=== PATIENT | female | born 1980 | race Caucasian/White ===

== ENCOUNTER 2016-08-24 10:39 | Outpatient (CLI) | payer MEDICAID ==
[~2016-08-24] VITALS: Ht 157.5 cm; Wt 74.0 kg
[~2016-08-24 10:39] MED LIST: CEPH-443 PO
[2016-08-24 10:59] VITALS: BP 140/79; PULSE 72; RESP 18; Ht 157.5 cm; Wt 74.0 kg
[2016-08-24] MEDS ORDERED: AL HYDROX/MG HYDROX/SIMETH 30 ML CUP PO ONE (12:00)
--- NOTE | 2016-08-24 12:48 | RADRPT ---
PROCEDURE: US Abdomen Limited . CLINICAL INDICATION: with upper abdominal pain. TECHNIQUE: Multiple real-time images were acquired of the patient's right upper quadrant abdomen u tilizing a high resolution transducer. COMPARISON: None FINDINGS: The liver measures 12.0 cm and demonstrates a normal echogenicity. The gallbladder is filled with a moderate amount of bile. No shadowing echogenic stones or masses are seen in the gallbladder. The gallbladder wall is not thickened at 1 mm. No pericholecystic fluid is noted. The common bile duct m easures 5 mm in diameter. The pancreas is not well visualized. Right kidney measures 10.1 cm. Right kidney demonstrates a normal echogenicity. Mild right hydrone phrosis is observed. IMPRESSION: Mild right hydronephrosis. Etiology is uncertain. If further characterization is needed MRI can be considered. Pancreas not well visualized. If characterization of this structure is needed repeat exam or MRI is recommended. If further characterization of the abdomen is needed MRI is recommended. RPTAT: AA .Chinmay Huerta MD, Date Time Electronically viewed and signed by .Chinmay Huerta MD, MD on 08/24/2016 12:48 .P/
--- NOTE | 2016-08-24 13:45 | RADRPT ---
PROCEDURE: US OB biophysical profile. CLINICAL INDICATION: decreased movements TECHNIQUE: Multiple sonographic images of the pelvis were obtained. The images were reviewed on a PACS workstation. COMPARISON: No prior studies are available for comparison. FINDINGS: There is a single viable intrauterine gestation. Cardiac activity is present with 136 beats per min missael. There is a vertex presentation. The placenta is posterior. There is no evidence of placental abruption. There is a normal amount of amniotic fluid with an DARYA = 11.4 cm. Biophysical profile: movement 2/2 tone 2/2. breathing 2/2 DARYA 2/2 Total 02/15 RPTAT: AA . IMPRESSION: Normal biophysical profile. . .Tao Dixon MD, MD Date Time Electronically viewed and signed by .Tao Dixon MD, MD on 08/24/2016 13:44 .S/
[2016-08-24 14:10] LABS: ALBUMIN 4.1 g/dl (3.3-4.9); POTASSIUM 4.4 mmol/L (3.5-5.1)
[2016-08-24 14:12] LABS: BILIRUBIN,INDIRECT 0.1 mg/dl (0-1.1); BILIRUBIN,TOTAL 0.1 mg/dl (0.2-1.3); CREATININE 0.65 mg/dl (0.44-1.00)
[2016-08-24 14:13] LABS: ALBUMIN/GLOBULIN RATIO 0.95; CALCIUM 9.8 mg/dl (8.4-10.2); TOTAL PROTEIN 8.4 g/dl (6.1-8.1); URIC ACID 6.5 mg/dl (3.1-7.9)
[2016-08-24 14:24] LABS: ADD UMIC YES; URINE BILIRUBIN (Dip) NEGATIVE (NEGATIVE); URINE BLOOD (Dip) NEGATIVE (NEGATIVE); URINE COLOR YELLOW (YELLOW); URINE GLUCOSE (Dip) NEGATIVE (NEGATIVE); URINE KETONES (Dip) NEGATIVE (NEGATIVE); URINE LEUKOCYTE ESTERASE (Dip) TRACE (NEGATIVE); URINE NITRITE (Dip) NEGATIVE (NEGATIVE); URINE TOTAL PROTEIN (Dip) TRACE (NEGATIVE); URINE UROBILINOGEN (Dip) 0.2 E.U./dL (0.1-1.0)
[2016-08-24 14:26] LABS: BASOPHIL # 0.1 10^3/ul (0.0-0.1); BASOPHILS % 0.4 % (0.0-2.0); CONDITION 1; EOSINOPHILS # 0.1 10^3/ul (0.0-0.5); EOSINOPHILS % 1.1 % (0.0-7.0); HEMATOCRIT 42.9 % (37.0-47.0); HEMOGLOBIN 14.4 g/dl (12.0-16.0); LH ANALYZER COMMENTS 1; LYMPHOCYTES # 4.7 10^3/ul (0.8-2.9); LYMPHOCYTES % 38.7 % (15.0-51.0); MEAN CORPUSCULAR HEMOGLOBIN 30.4 pg (29.0-33.0); MEAN CORPUSCULAR HGB CONC 33.6 g/dl (32.0-37.0); MEAN CORPUSCULAR VOLUME 90.5 fl (82.0-101.0); MEAN PLATELET VOLUME 13.1 fl (7.4-10.4); MONOCYTE # 0.8 10^3/ul (0.3-0.9); NEUTROPHIL # 6.4 10^3/ul (1.6-7.5); NEUTROPHILS % 52.8 % (39.0-77.0); PLATELET COUNT 157 10^3/UL (140-440); RED BLOOD COUNT 4.74 10^6/ul (4.20-5.40); RED CELL DISTRIBUTION WIDTH 14.6 % (11.5-14.5); SUSPECT 1; UNCORRECTED WBC 12.2 10^3/ul (4.8-10.8); WHITE BLOOD COUNT 12.2 10^3/ul (4.8-10.8)
[2016-08-24 14:35] LABS: BACTERIA,URINE MODERATE; URINE RBCS NONE SEEN /HPF (0)
--- NOTE | 2016-08-24 16:29 | CONS ---
Date/Time of Note Date/Time of Note DATE: 08/24/16 TIME: 16:20 Consultation Date/Type/Reason Admit Date/Time August 24, 2016 Triage consultation This patient is a 36 years old 5 para 3 1 2 date of October 30, 2016. Now 30 weeks and 3 days. She came to triage area complaining of abdominal and back pain which is happening every few days lasting about half an hour. No nausea or vomiting. On examination she is a well-developed well-nourished lady her vital signs are stable blood pressure 140/79 pulse rate 94 temperature 90 7. repeated blood pressure was 119/76 and 134/81 her ear nose throat appear to be normal neck is normal. No neck vein distention. No thyromegaly. No lymph node enlargement anywhere in the body. Chest is clear to auscultation her precaution. Heart normal sinus rhythm no murmur breasts are soft free of masses. Nipples are normal. Abdomen is soft no contraction at this time. heart tone is normal with fairly good accelerations variability and no deceleration. Her knee-jerk reflexes about 2+ on the left as her urine was 1+ protein and her BUN was 6.5 the rest of the exam were normal as I mentioned a CBC CMP and urine test was for her abdominal pain Mylanta was ordered. And to rule out PIH a 24 hour urine collection was initiated. Patient was instructed on how to properly collect a urine specimen this is to rule out PIH end of dictation thank you Laboratory Tests Test 08/24/16 10:25 08/24/16 13:30 Urine Bacteria MODERATE Urine Bilirubin NEGATIVE Urine Clarity CLEAR Urine Color YELLOW Urine Epithelial Cells MODERATE Urine Glucose NEGATIVE% Urine Hemoglobin NEGATIVE Urine Ketones NEGATIVE Urine Leukocyte Esterase TRACE Urine Microscopic RBC NONE SEEN/HPF Urine Microscopic WBC 5-10/HPF Urine Nitrite NEGATIVE Urine Specific [place] >=1.030 Urine Total Protein TRACE Urine Urobilinogen 0.2 E.U./dL Urine pH 6.0 Alanine Aminotransferase (ALT/SGPT) 27IU/L Albumin 4.1g/dl Albumin/Globulin Ratio 0.95 Alkaline Phosphatase 223IU/L Anion Gap 18 Aspartate Amino Transf (AST/SGOT) 30IU/L Basophils # 0.110^3/ul Basophils % 0.4% Blood Morphology Comment Blood Urea Nitrogen 12mg/dl Calcium Level 9.8mg/dl Carbon Dioxide Level 20mmol/L Chloride Level 105mmol/L Creatinine 0.65mg/dl Direct Bilirubin 0.00mg/dl Eosinophils # 0.110^3/ul Eosinophils % 1.1% Globulin 4.30g/dl Glucose Level 75mg/dl Hematocrit 42.9% Hemoglobin 14.4g/dl Indirect Bilirubin 0.1mg/dl Lymphocytes # 4.710^3/ul Lymphocytes % 38.7% Mean Corpuscular Hemoglobin 30.4pg Mean Corpuscular Hemoglobin Concent 33.6g/dl Mean Corpuscular Volume 90.5fl Mean Platelet Volume 13.1fl Monocytes # 0.810^3/ul Monocytes % 7.0% Neutrophils # 6.410^3/ul Neutrophils % 52.8% Nucleated Red Blood Cells # 0.010^3/ul Nucleated Red Blood Cells % 0.0/100WBC Platelet Count 31219^3/UL Potassium Level 4.4mmol/L Red Blood Count 4.7410^6/ul Red Cell Distribution Width 14.6% Sodium Level 139mmol/L Total Bilirubin 0.1mg/dl Total Protein 8.4g/dl Uric Acid 6.5mg/dl White Blood Count 12.210^3/ul Current Medications Medications (Trade) Dose Ordered Sig/Manuela Route PRN Reason Start Time Stop Time Status Last Admin Dose Admin Al Hydrox/Mg Hydrox/Simethicone (Mag-Al Plus) 30 ml ONCE ONCE PO 08/24/16 12:00 08/24/16 12:01 DC 08/24/16 12:05 30 ML Initial Consult Date Exam/Review of Systems Vital Signs Vitals Vital Signs Date Time Temp Pulse Resp B/P Pulse Ox O2 Delivery O2 Flow Rate FiO2 08/24/16 10:59 97.8 72 18 140/79 Room Air Results Result Diagram: 08/24/16 1330 08/24/16 1330 Results 24 hrs Laboratory Tests Test 08/24/16 10:25 08/24/16 13:30 Urine Bacteria MODERATE Urine Bilirubin NEGATIVE Urine Clarity CLEAR Urine Color YELLOW Urine Epithelial Cells MODERATE Urine Glucose NEGATIVE Urine Hemoglobin NEGATIVE Urine Ketones NEGATIVE Urine Leukocyte Esterase TRACE H Urine Microscopic RBC NONE SEEN Urine Microscopic WBC 5-10 Urine Nitrite NEGATIVE Urine Specific [place] >=1.030 H Urine Total Protein TRACE Urine Urobilinogen 0.2 E.U./dL Urine pH 6.0 Alanine Aminotransferase (ALT/SGPT) 27 Albumin 4.1 Albumin/Globulin Ratio 0.95 Alkaline Phosphatase 223 H Anion Gap 18 H Aspartate Amino Transf (AST/SGOT) 30 Basophils # 0.1 Basophils % 0.4 Blood Morphology Comment Blood Urea Nitrogen 12 Calcium Level 9.8 Carbon Dioxide Level 20 L Chloride Level 105 Creatinine 0.65 Direct Bilirubin 0.00 Eosinophils # 0.1 Eosinophils % 1.1 Globulin 4.30 H Glucose Level 75 Hematocrit 42.9 Hemoglobin 14.4 Indirect Bilirubin 0.1 Lymphocytes # 4.7 H Lymphocytes % 38.7 Mean Corpuscular Hemoglobin 30.4 Mean Corpuscular Hemoglobin Concent 33.6 Mean Corpuscular Volume 90.5 Mean Platelet Volume 13.1 #H Monocytes # 0.8 Monocytes % 7.0 Neutrophils # 6.4 Neutrophils % 52.8 Nucleated Red Blood Cells # 0.0 Nucleated Red Blood Cells % 0.0 Platelet Count 157 # Potassium Level 4.4 Red Blood Count 4.74 Red Cell Distribution Width 14.6 H Sodium Level 139 Total Bilirubin 0.1 L Total Protein 8.4 H Uric Acid 6.5 White Blood Count 12.2 H JOSHUA ALMAZAN MD Aug 24, 2016 16:29
--- NOTE | 2016-08-24 17:39 | TRIAGE ---
OB Triage Datetime Report Generated by CPN: 08/24/2016 17:39 Datetime: 08/24/2016 15:51 Stage of : OB Triage Datetime: 08/24/2016 15:13 Stage of : OB Triage Datetime: 08/24/2016 15:07 Stage of : OB Triage Datetime: 08/24/2016 13:34 Stage of : OB Triage Datetime: 08/24/2016 13:24 Stage of : OB Triage Labor Evaluation Frequency: 0 Monitor Mode: External Resting Tone [place]: Relaxed Heart Rate FHR Baseline Rate: 130 Monitor Mode: External US Variability: Moderate 6-25 bpm Accelerations: 15X15 Decelerations: None Category: Category II Comments: frequent loos of contact rt pt frequent change of position Datetime: 08/24/2016 13:20 Stage of : OB Triage Datetime: 08/24/2016 12:39 Stage of : OB Triage Datetime: 08/24/2016 12:29 Stage of : OB Triage Datetime: 08/24/2016 12:12 Stage of : OB Triage Datetime: 08/24/2016 12:00 Stage of : OB Triage Labor Evaluation Frequency: x3 Monitor Mode: External Duration (sec)2399: 40 Quality: Mild Resting Tone [place]: Relaxed Heart Rate FHR Baseline Rate: 135 Monitor Mode: External US Variability: Moderate 6-25 bpm Accelerations: 15X15 Decelerations: Variable Category: Category I Comments: Appropriate for ga Datetime: 08/24/2016 11:48 Stage of : OB Triage Datetime: 08/24/2016 11:43 Stage of : OB Triage Datetime: 08/24/2016 11:28 EGA: 30.3 Datetime: 08/24/2016 11:04 Assessment Type: Admission Assessment Maternal Assessment Level of Consciousness: Fully Conscious DTR's/Clonus: DTRs 2+; No Clonus Headache: Denies Blurred Vision: No Respiratory Effort: Unlabored; Regular Rhythm; Equal Expansion Breath Sounds, Left: Clear and Equal Breath Sounds, Right: Clear and Equal Nausea/Vomiting: Denies RUQ Epigastric Pain: Denies Lower Extremities Edema: None Degree: None Upper Extremities Edema: None Degree: None Facial Edema: None Fall Risk Assessment History of Falling: (0) No Secondary Diagnosis: (0) No Ambulatory Aid: (0) Bedrest/Nurse Assist IV Therapy: (0) No Gait: (0) Normal/Bedrest/Immobile Mental Status: (0) Oriented to Own Ability Fall Score: 0 Fall Risk Score Definition: No Risk: No action required Datetime: 08/24/2016 11:03 Time of Arrival: 08/24/2016 10:38 EGA: 30.3 Arrived By: Wheelchair Arrived From: Emergency Dept Chief Complaint: ABDOMINAL PAIN Movement: Present Contractions: Denies/Absent Rupture of Membranes: Denies Vaginal Bleeding: None Vaginal Discharge: Denies Recent Sexual Intercouse: Denies Abdominal Trauma: Not Applicable Patient Complaints: Nausea; Vomiting; Other Additional Patient Complaints: PT CAME IN COMPLAINING OF ABDOMINAL PAIN AND N/V FOR 2 WEEKS. Time Provider Notified: 08/24/2016 11:37 Provider Notified: Renetta Initial Plan: VS, NST, BP studies, US GALL BLADDER, CBC, CMP, URIC ACID, UA, BPP Datetime: 08/24/2016 10:47 Stage of : OB Triage Monitor Mode: External Monitor Mode: External US
--- NOTE | 2016-08-24 18:00 | TRIAGE ---
OB Triage Datetime Report Generated by CPN: 08/24/2016 18:00 Datetime: 08/24/2016 16:10 Stage of : OB Triage Frequency: 0 Monitor Mode: External Resting Tone [place]: Relaxed Datetime: 08/24/2016 15:00 Stage of : OB Triage FHR Baseline Rate: 130 Monitor Mode: External US FHR Baseline Changes: No Baseline Change Variability: Moderate 6-25 bpm Accelerations: 15X15 Decelerations: Variable Category: Category I Comments: Appropriate for ga.
[2016-08-25] MEDS ORDERED: PRENAT PO (18:47)
== END 2016-08-24 16:27 | disposition home or self-care (01) ==
LOC: OBT 10:39 → L-D 10:40 → OBT 16:27
PROVIDERS: ATTEND Obstetrics & Gynecology
DX: O26.893 Other specified pregnancy related conditions, third trimester (principal); R10.10 Upper abdominal pain, unspecified; M54.9 Dorsalgia, unspecified; O36.8130 Decreased fetal movements, third trimester, not applicable or unspecified; Z3A.30 30 weeks gestation of pregnancy
CPT/HCPCS: 36415; 76705; 76818; 80053; 81001; 81003; 84560; 85025; Z7500; Z7610; G0463

== ENCOUNTER 2016-08-25 18:28 | Inpatient (IN) | payer MEDICAID ==
[~2016-08-25] VITALS: Ht 157.5 cm; Wt 74.5 kg
[2016-08-25] MEDS ORDERED: PRENAT PO (18:47)
[2016-08-25 18:48] VITALS: BP 127/77; PULSE 64; RESP 18; Ht 157.5 cm; Wt 74.5 kg
[2016-08-25] MEDS ORDERED: ACETAMINOPHEN 325 MG TAB PO ONE (19:30)
--- NOTE | 2016-08-25 20:23 | RADRPT ---
PROCEDURE: OB ultrasound for biophysical profile CLINICAL INDICATION: Biophysical profile. . TECHNIQUE: Transabdominal and transvaginal examination of the gravid uterus. COMPARISON: OB ultrasound 08/24/2016 FINDINGS: Single intrauterine gestation. Presentation: cephalic. Placenta: Fundal - posterior breathing movement = 2/2 tone = 2/2 motion = 2/2 DARYA = 2/2 DARYA = 12.2 cm heart rate: 148 beats per minute Cervix is closed with a length of 3.66 cm as imaged transvaginally. IMPRESSION: Single intrauterine gestation. Biophysical profile 02/15 Cervix is closed with a length of 3.66 cm as imaged transvaginally. RPTAT: AADD .Kong Henry MD, Date Time Electronically viewed and signed by .Kong Henry MD, on 08/25/2016 20:23 .B/
[2016-08-25 21:20] LABS: SCRET 0.65 mg/dl (0.44-1.00)
--- NOTE | 2016-08-25 21:28 | QN ---
Documentation Comment 36-year-old with IUP at 30 weeks and 4 days presented for dropping 24 hour urine protein ordered due to elevated blood pressure noted yesterday when she presented with abdominal pain. Patient abdominal pain currently resolved. She also was complaining of headache. She denied any leaking of fluid, vaginal bleeding or decreased movement. She was noted to have regular contractions every 3-4 minutes during the observation. She had a serial blood pressure check when she presented to triage to drop her 24 hour urine protein which noted to increasing from 120s- 160s over 90s. She also complained of headache. She denied any epigastric pain or right upper quadrant pain. Ultrasound showed cervical length more than 3 cm. BPP was 8/8 and reassuring PIH labs ordered during observation, that was unremarkable. Due to elevated blood pressure in the range of preeclampsia as well as headache, as well as regular contractions patient will be admitted to antepartum service. PE: GA , A&O, in moderate distress Abdomen: Soft, nontender, no rebound tenderness, no guarding no rigidity fundal height consistent with gestational age Assessment IUP at 30 weeks and 4 days Headache and increase in blood pressure at the level of severe preeclampsia. Headache did not resolve with Tylenol and rest 24 hour urine protein was sent and is pending will admit the patient to antepartum service Start magnesium, due to elevated blood pressure in the severe range for seizure prophylaxis We will continue to watch closely PIH panel every 12 hours Perinatology and neonatology consult tomorrow. UA sent due to regular contractions. FFN negative GIANNA MCKAY MD Aug 25, 2016 21:28
[2016-08-25] MEDS ORDERED: MAGNESIUM SULFATE 4 GM/100 ML 100 ML IV ONE (21:30)
[2016-08-25] MEDS: BETAMET NA PHOS/AC(6 MG/ML) 5ML INJ IM SCH (21:30)
[2016-08-25] MEDS: LACTATED RINGER'S 1,000 ML IV SCH (21:42)
[2016-08-25 22:26] LABS: ADD UMIC NO; URINE BILIRUBIN (Dip) NEGATIVE (NEGATIVE); URINE BLOOD (Dip) NEGATIVE (NEGATIVE); URINE COLOR LT. YELLOW (YELLOW); URINE GLUCOSE (Dip) NEGATIVE (NEGATIVE); URINE KETONES (Dip) NEGATIVE (NEGATIVE); URINE LEUKOCYTE ESTERASE (Dip) NEGATIVE (NEGATIVE); URINE NITRITE (Dip) NEGATIVE (NEGATIVE); URINE TOTAL PROTEIN (Dip) NEGATIVE (NEGATIVE); URINE UROBILINOGEN (Dip) 0.2 E.U./dL (0.1-1.0)
[2016-08-25] MEDS: MAGNESIUM SULFATE 20 GM/500 ML 500 ML IV SCH (22:36)
[2016-08-25 22:42] LABS: ALBUMIN 3.2 g/dl (3.3-4.9)
[2016-08-25 22:43] LABS: POTASSIUM 3.8 mmol/L (3.5-5.1)
[2016-08-25 22:45] LABS: CREATININE 0.61 mg/dl (0.44-1.00)
[2016-08-25 22:46] LABS: ALBUMIN/GLOBULIN RATIO 0.96; CALCIUM 8.7 mg/dl (8.4-10.2); TOTAL PROTEIN 6.5 g/dl (6.1-8.1); URIC ACID 6.3 mg/dl (3.1-7.9)
[2016-08-25 22:46] LABS: INR 0.89; PT RATIO 0.9
[2016-08-25 22:47] LABS: PARTIAL THROMBOPLASTIN TIME 30.3 Sec (25.0-35.0)
[2016-08-25 23:05] LABS: BASOPHILS % 0.5 % (0.0-2.0); EOSINOPHILS # 0.1 10^3/ul (0.0-0.5); EOSINOPHILS % 1.3 % (0.0-7.0); HEMATOCRIT 34.9 % (37.0-47.0); HEMOGLOBIN 11.6 g/dl (12.0-16.0); LYMPHOCYTES # 3.8 10^3/ul (0.8-2.9); LYMPHOCYTES % 35.8 % (15.0-51.0); MEAN CORPUSCULAR HEMOGLOBIN 30.3 pg (29.0-33.0); MEAN CORPUSCULAR HGB CONC 33.3 g/dl (32.0-37.0); MEAN PLATELET VOLUME 13.3 fl (7.4-10.4); MONOCYTE # 0.6 10^3/ul (0.3-0.9); MONOCYTES % 6.1 % (0.0-11.0); NEUTROPHIL # 5.9 10^3/ul (1.6-7.5); NEUTROPHILS % 56.3 % (39.0-77.0); PLATELET COUNT 149 10^3/UL (140-440); RED BLOOD COUNT 3.84 10^6/ul (4.20-5.40); RED CELL DISTRIBUTION WIDTH 14.5 % (11.5-14.5); UNCORRECTED WBC 10.6 10^3/ul (4.8-10.8); WHITE BLOOD COUNT 10.6 10^3/ul (4.8-10.8)
[2016-08-25 23:06] LABS: CONDITION 1
[2016-08-26] MEDS: MEPERIDINE 25 MG INJ IM PRN ×2 (01:17→05:20)
[2016-08-26] MEDS: hydrOXYzine HCL 100 MG INJ IM PRN ×2 (01:17→05:21)
--- NOTE | 2016-08-26 01:27 | TRIAGE ---
OB Triage Datetime Report Generated by CPN: 08/26/2016 01:27 Datetime: 08/26/2016 00:07 Assessment Type: Admission Assessment Vaginal Bleeding: None Level of Consciousness: Fully Conscious DTR's/Clonus: DTRs 2+; No Clonus Headache: Denies Blurred Vision: No Respiratory Effort: Unlabored; Regular Rhythm; Equal Expansion Breath Sounds, Left: Clear and Equal Breath Sounds, Right: Clear and Equal Nausea/Vomiting: Denies RUQ Epigastric Pain: Denies Lower Extremities Edema: None Degree: None Upper Extremities Edema: None Degree: None Facial Edema: None History of Falling: (0) No Secondary Diagnosis: (0) No Ambulatory Aid: (0) Bedrest/Nurse Assist IV Therapy: (0) No Gait: (0) Normal/Bedrest/Immobile Mental Status: (0) Oriented to Own Ability Fall Score: 0 Fall Risk Score Definition: No Risk: No action required Pain Scale: 0 Pain Presence: None/Denies Pain Type: N/A Datetime: 08/25/2016 23:27 Frequency: x2 Monitor Mode: External Duration (sec)2399: 40-60 Quality: Mild Pattern: Normal: <= 5 Contractions in 10 Minutes Resting Tone [place]: Relaxed FHR Baseline Rate: 130 Monitor Mode: External US FHR Baseline Changes: No Baseline Change Variability: Moderate 6-25 bpm Accelerations: 15X15 Decelerations: Variable Category: Category II Datetime: 08/25/2016 23:00 Frequency: 2-13 Monitor Mode: External Duration (sec)2399: 40-70 Quality: Mild Pattern: Normal: <= 5 Contractions in 10 Minutes Resting Tone [place]: Relaxed FHR Baseline Rate: 130 Monitor Mode: External US FHR Baseline Changes: No Baseline Change Variability: Moderate 6-25 bpm Accelerations: 15X15 Decelerations: None Category: Category I Datetime: 08/25/2016 22:00 Frequency: 1-3.5 Monitor Mode: External Duration (sec)2399: 40-90 Quality: Mild Pattern: Normal: <= 5 Contractions in 10 Minutes Resting Tone [place]: Relaxed FHR Baseline Rate: 130 Monitor Mode: External US Variability: Moderate 6-25 bpm Accelerations: 15X15 Decelerations: None Category: Category I Pain Scale: 5 Pain Presence: Constant Pain Type: Ache Pain Location: Head Datetime: 08/25/2016 21:17 Membrane Status: Intact Datetime: 08/25/2016 21:00 Stage of : OB Triage Frequency: 2-5.5 Monitor Mode: External Duration (sec)2399: 40-80 Quality: Mild Pattern: Normal: <= 5 Contractions in 10 Minutes Resting Tone [place]: Relaxed FHR Baseline Rate: 135 Monitor Mode: External US FHR Baseline Changes: No Baseline Change Variability: Moderate 6-25 bpm Accelerations: 15X15 Decelerations: Variable Category: Category II Datetime: 08/25/2016 20:45 Stage of : OB Triage Pain Scale: 5 Pain Presence: Constant Pain Type: Ache Pain Location: Head Pain Relief Measures: Pain Medication Given Pain Assessment Comments: Pt states DURAN pain remains unchanged after Tylenol given. Datetime: 08/25/2016 20:00 Stage of : OB Triage Frequency: 2-10 Monitor Mode: External Duration (sec)2399: 40-100 Quality: Mild Pattern: Normal: <= 5 Contractions in 10 Minutes Resting Tone [place]: Relaxed FHR Baseline Rate: 135 Monitor Mode: External US Variability: Moderate 6-25 bpm Accelerations: 15X15 Decelerations: None Category: Category I Datetime: 08/25/2016 19:27 Resting Tone [place]: Relaxed Contraction Comments: Abdomen soft by palpation Datetime: 08/25/2016 19:26 Stage of : OB Triage Assessment Type: Triage Level of Consciousness: Fully Conscious DTR's/Clonus: DTRs 2+; No Clonus Headache: Frontal Blurred Vision: No Respiratory Effort: Unlabored; Regular Rhythm; Equal Expansion Breath Sounds, Left: Clear and Equal Breath Sounds, Right: Clear and Equal Nausea/Vomiting: Denies RUQ Epigastric Pain: Denies Lower Extremities Edema: None Degree: None Upper Extremities Edema: None Degree: None Facial Edema: None Temperature Route: Oral History of Falling: (0) No Secondary Diagnosis: (0) No Ambulatory Aid: (0) Bedrest/Nurse Assist IV Therapy: (0) No Gait: (0) Normal/Bedrest/Immobile Mental Status: (0) Oriented to Own Ability Fall Score: 0 Fall Risk Score Definition: No Risk: No action required Pain Scale: 5 Pain Presence: Constant Pain Type: Ache Pain Location: Head Pain Relief Measures: Comfort Measures Pain Assessment Comments: Will medicate with Tylenol Datetime: 08/25/2016 18:45 Assessment Type: Triage Level of Consciousness: Fully Conscious DTR's/Clonus: DTRs 2+; No Clonus Headache: Frontal Blurred Vision: No Respiratory Effort: Unlabored; Regular Rhythm; Equal Expansion Breath Sounds, Left: Clear and Equal Breath Sounds, Right: Clear and Equal Nausea/Vomiting: Denies RUQ Epigastric Pain: Denies Lower Extremities Edema: None Degree: None Upper Extremities Edema: None Degree: None Facial Edema: None History of Falling: (0) No Secondary Diagnosis: (0) No Ambulatory Aid: (0) Bedrest/Nurse Assist IV Therapy: (0) No Gait: (0) Normal/Bedrest/Immobile Mental Status: (0) Oriented to Own Ability Fall Score: 0 Fall Risk Score Definition: No Risk: No action required Datetime: 08/24/2016 15:44 Time of Arrival: 08/25/2016 18:26 EGA: 30.4 Arrived By: Ambulatory Arrived From: Home Chief Complaint: PT HERE WITH 24HOUR URINE COLLECTION Movement: Present Contractions: Denies/Absent Rupture of Membranes: Denies Vaginal Bleeding: None Vaginal Discharge: Denies Recent Sexual Intercouse: Denies Abdominal Trauma: Not Applicable Patient Complaints: Headache Time Provider Notified: 08/25/2016 19:03 Provider Notified: ARDALAN Initial Plan: 24hr urine collection drop-off Datetime: 08/24/2016 11:28 EGA: 30.3 Datetime: 08/24/2016 11:04 Fall Score: 0 Fall Risk Score Definition: No Risk: No action required
[2016-08-26] MEDS: MAGNESIUM SULFATE 20 GM/500 ML 500 ML IV SCH ×2 (07:11→07:59)
[2016-08-26] MEDS: LACTATED RINGER'S 1,000 ML IV SCH ×2 (08:00→21:21)
[2016-08-26] MEDS: MULTIVIT/MIN/FOLATE/IRON/PREN TAB PO SCH (09:18)
[2016-08-26] MEDS: EXCEDRIN MIGRAINE PO PRN ×2 (12:55→18:07)
--- NOTE | 2016-08-26 14:04 | PN ---
Date/Time of Note Date/Time of Note DATE: 08/26/16 TIME: 13:46 OB Subjective Subjective Subjective August 26, 2016 Hospital consult This patient is a 36 years old 5 para 3 1 with EDC of October.. She is now 30 weeks and 4 days . She was admitted in the hospital last night She came in triage area to arrange her 24-hour urine collection, however it was found that she has a headache and her blood pressure was elevated in the 135 /90 range. For this reason the decision was made to be admitted in the hospital for further care. Her biophysical profile was 8 of 8 ,cervical length of 3.6 .. She was subsequently admitted to [facility] . Mag sulfate started.. She was given pain medication. Magnesium sulfate is stopped due to headache and some degree of abnormal heart rate tracing. Her blood pressures gradually improved, now is in the range of 110-120/70-75 over 80. She still has a mild headache. No ankle edema. Knee-jerk reflex are normal. Abdomen is soft. heart tone at this time is normal with fairly low variability. She does not have any contractions. Her max sulfate as I mentioned was DC'd few hours ago due to slightly abnormal heart tracing. Apparently takes about 3 days for the 24-hour urine result to be reported. For now we will keep her in the house in the hospital under observation. Patient has been visited by perinatologist. . Laboratory Tests Test 08/25/16 17:30 08/25/16 19:24 08/25/16 21:00 08/25/16 21:40 Creatinine Clearance 111.0mls/min Urine Creatinine Timed 24hrs Urine Random Creatinine 69.27mg/dl Urine Total Volume 24 Hours 1500ml/24hrs Fibronectin NEGATIVE Activated Partial Thromboplast Time 30.3Sec Basophils # 0.010^3/ul Basophils % 0.5% Blood Morphology Comment Eosinophils # 0.110^3/ul Eosinophils % 1.3% Fibrinogen 470.0mg/dl Hematocrit 34.9% Hemoglobin 11.6g/dl INR International Normalized Ratio 0.89 Lymphocytes # 3.810^3/ul Lymphocytes % 35.8% Mean Corpuscular Hemoglobin 30.3pg Mean Corpuscular Hemoglobin Concent 33.3g/dl Mean Corpuscular Volume 91.0fl Mean Platelet Volume 13.3fl Monocytes # 0.610^3/ul Monocytes % 6.1% Neutrophils # 5.910^3/ul Neutrophils % 56.3% Nucleated Red Blood Cells # 0.010^3/ul Nucleated Red Blood Cells % 0.0/100WBC Platelet Count 01793^3/UL Prothrombin Time 12.0Sec Prothrombin Time Ratio 0.9 Red Blood Count 3.8410^6/ul Red Cell Distribution Width 14.5% White Blood Count 10.610^3/ul Alanine Aminotransferase (ALT/SGPT) 23IU/L Albumin 3.2g/dl Albumin/Globulin Ratio 0.96 Alkaline Phosphatase 178IU/L Anion Gap 16 Aspartate Amino Transf (AST/SGOT) 25IU/L Blood Urea Nitrogen 11mg/dl Calcium Level 8.7mg/dl Carbon Dioxide Level 19mmol/L Chloride Level 105mmol/L Creatinine 0.61mg/dl Direct Bilirubin 0.00mg/dl Globulin 3.30g/dl Glucose Level 84mg/dl Indirect Bilirubin 0.0mg/dl Potassium Level 3.8mmol/L Sodium Level 136mmol/L Total Bilirubin 0.0mg/dl Total Protein 6.5g/dl Uric Acid 6.3mg/dl Test 08/25/16 21:55 08/26/16 00:29 08/26/16 05:50 Urine Bilirubin NEGATIVE Urine Clarity CLEAR Urine Color LT. YELLOW Urine Glucose NEGATIVE% Urine Hemoglobin NEGATIVE Urine Ketones NEGATIVE Urine Leukocyte Esterase NEGATIVE Urine Nitrite NEGATIVE Urine Specific [place] 1.010 Urine Total Protein NEGATIVE Urine Urobilinogen 0.2 E.U./dL Urine pH 6.5 Magnesium Level 5.5mg/dl 6.5mg/dl Current Medications Medications (Trade) Dose Ordered Sig/Manuela Route PRN Reason Start Time Stop Time Status Last Admin Dose Admin Acetaminophen 650 mg 650 mg ONCE ONCE PO 08/25/16 19:30 08/25/16 19:31 DC 08/25/16 19:37 Lactated Ringer's 1,000 ml @ 75 mls/hr [id number] IV 08/25/16 21:11 08/26/16 08:00 Magnesium Sulfate 100 ml @ 200 mls/hr ONCE ONCE IV 08/25/16 21:30 08/26/16 10:45 DC 08/25/16 22:00 Magnesium Sulfate (Magnesium Sulfate 20 Gm/500 ml) 500 ml @ 50 mls/hr Q10H IV 08/25/16 21:11 08/26/16 10:45 DC 08/26/16 07:59 Betamethasone Acet/Betameth SodPhos (Celestone Soluspan) 12 mg Q24H IM 08/25/16 21:30 08/26/16 21:31 Prenat Multivit/ [place]/Iron/Folic Ac ( S) 1 tab DAILY PO 08/26/16 09:00 08/26/16 09:18 Meperidine HCl (Demerol) 25 mg Q4H PRN IM PAIN 08/25/16 23:30 08/26/16 05:20 Hydroxyzine HCl (Vistaril Inj) 25 mg Q4H PRN IM HEADACHE 08/25/16 23:30 08/26/16 05:21 Patient Own Medication 2 ea Q6H PRN PO PAIN LEVEL 6-10 08/26/16 10:30 08/26/16 12:55 If she is doing well she might be discharged home tomorrow or day after JOSHUA ALMAZAN MD Aug 26, 2016 14:04
[2016-08-26] MEDS: BETAMET NA PHOS/AC(6 MG/ML) 5ML INJ IM SCH (19:39)
--- NOTE | 2016-08-27 01:24 | CONS ---
DATE OF ADMISSION: 08/25/2016 DATE OF CONSULTATION: 08/26/2016 HISTORY OF PRESENT ILLNESS: The patient is a 36-year-old 5, para 3, with 1 miscarriage, cur rently at 30 weeks and 2 days who presented to the hospital with complaint of contractions and heada ches. Upon presentation, her blood pressures were found to be elevated. Cervical length was 3.5 cm , so she was placed on magnesium sulfate for tocolysis. Currently she does have a headache. It has not been relieved by Tylenol nor with stronger medication. She states that, however, her contracti ons have stopped. She states that she has a history of migraine, but this headache is different ole n the migraine, but she has experienced this type of headache before and the relief has been achieve d be Excedrin. She also had 1 episode of vomiting after she ate eggs in the morning. Her prior pregnancies are not complicated. PAST MEDICAL HISTORY: Except for migraine, negative. REVIEW OF SYSTEMS: All negative except for what is mentioned above. PHYSICAL EXAMINATION: Blood pressure currently is 118/63. Physical examination deferred. he art tone, minimal variability without decelerations. Contractions none. LABORATORY VALUES: AST, ALT are normal. Creatinine is 0.6, platelets 143, which is lower than the baseline of 178,000, I do believe, at the beginning of the test. A 24-hour urine for prot ein is pending. IMPRESSION: 1. Intrauterine at 30 weeks and 2 days with gestational hypertension, just diagnosed, pen ding 24-hour urine protein to diagnose preeclampsia. 2. Headache, which could be secondary to a complication of blood pressure elevation in or a type of her migraine that she has experienced in the past. 3. Nausea, vomiting. I do believe her vomiting is associated with her elevated blood pressure, as her liver function tests are completely normal at this point. 4. contractions. Currently, asymptomatic with normal cervical length. heart tone coronel s minimal variability, which is secondary to probably magnesium sulfate, as the baby had looked bett er prior to starting magnesium sulfate. RECOMMENDATIONS: Given currently completely normal blood pressures and the labs that are normal, al so given the fact that she has no contractions currently at cervical length is normal should be stop ped to monitor for improvement of heart tone status. Some crackers and toast prior to taking Excedrin, as she took in the past. She generally takes 2 ta blets and then if not improved in 4 hours, I advised her not to go beyond that, as if it has not imp roved, then it will be a concern for preeclampsia. Following up on the 24-hour urine for protein and creatinine clearance. She will be staying at least overnight in order to assure improvement of the heart rate status as well as resolution of her headache. Also, I do recommend for the patient to stay on for the 24- hour urine protein is resulted. Also, if nausea, vomiting continues, please repeat the liver functi on tests as well as a CBC and her creatinine level. If her headache is not resolved with the Excedrin, I do recommend betamethasone, as it will be a nelida nce that her headache is the result -induced hypertension and may require earlier delivery than normal. However, if the headache is resolved, blood pressure is completely normal and the feta l heart tone is reassuring, then we leave the betamethasone injection until later if necessary. I spoke to the nurse and the patient. Dictated By: SUDHAKAR GARCIA MD ST/NTS Conf#: [id number] DID#: [id number] CC: JADYN GONZALEZ MD;*EndCC*
[2016-08-27] MEDS: BETAMET NA PHOS/AC(6 MG/ML) 5ML INJ IM SCH (02:21)
[2016-08-27] MEDS: LACTATED RINGER'S 1,000 ML IV SCH ×2 (08:17→22:19)
--- NOTE | 2016-08-27 09:12 | PN ---
Date/Time of Note Date/Time of Note DATE: 08/27/16 TIME: 09:11 OB Subjective Subjective Subjective Laborist HD#3 for 36yo at 30+6 admitted for persistent DURAN in the setting of newly diagnosed gestational HTN with normal PreE labs as well as contractions with TVCL 3.6cm and neg FFN. This AM, pt is w/o c/o. States she had slight nausea this morning upon awakening but none since. Denies vomiting. Reports normal FM, denies LOF, VB or UCs. Pt currently denying DURAN. OB Objective Objective Objective BPs 122/75, 120s-140s/70s-80s Gen: sitting up in bed eating breakfast, NAD CV: RRR, nl s1s2 Resp: CTAB Abd: soft, NT, gravid Ext: nontender, no edema FHT: Baseline 120s, mod variability, +accels, variable with late shaped decel x1 at 0650 [place]: Acontractile OB Assessment/Plan Other Assessment: Gestational HTN Contractions Other plan: 1)Gestational Hypertension: Pt asymptomatic with majority of BPs wnl, few mild range BPs. S/p Mag Sulfate. Called the lab regarding the 24hr urine results and was told they should be back by tonight. Will continue to monitor BPs. At this time antihypertensives are not indicated. -S/p MFM Consult 2) Contractions: Pt no longer symptomatic and w/o e/o PTL. Pt not receiving tocolytics. 3)FWB: Category 1 FHT For last 2hrs. CEFM. However, given decel early this AM, pt received BMZ #1 at 0221. Will receive 2nd dose early tomorrow AM. 4)PPx: OOB to bathroom. SCDs while in bed. 5)Dispo: Possibly tomorrow pending results of 24hr urine, BPs today and status. Plan d/w pt and her partner. Questions answered to their satisfaction. ETHAN CURTIS MD Aug 27, 2016 09:12
[2016-08-27] MEDS: MULTIVIT/MIN/FOLATE/IRON/PREN TAB PO SCH (09:23)
[2016-08-27] MEDS ORDERED: ACETAMINOPHEN 500 MG TAB PO STA (21:29)
--- NOTE | 2016-08-27 21:58 | QN ---
Documentation Comment Laborist Alerted by RN of decels. In to see pt and pt also c/o chest pain at sternum. BPs reviewed and 130s-150s/70s-90s. Pt denies DURAN, visual changes or RUQ pain. FHT reviewed. Baseline 130s, mod yadira, +accels, non-repetitive variable decels to 90s and 60s. [place]: Acontractile Chest: localized pain at sternum, no local irritation/erythema/sores Although deep variable decels are concerning, they are intermittent and FHT between decels is reassuring. Will continue to monitor for now Proceed w/2nd dose of BMZ at 0200 Tylenol PO for chest pain, consider antacid as sxs may be related to GERD. Current clinical picture does not suggest cardiac event ETHAN CURTIS MD Aug 27, 2016 21:58
--- NOTE | 2016-08-28 00:14 | QN ---
Documentation Comment Laborist Transferred pt to L&D 2/2 deep variable decel x3 in 15 min. On L&D, FHT baseline 120s, mod yadira, decel to 80s x60 seconds. UC x1 noted on toco. BPs 189/94, 165/80, 132/61, 126/61 Pt asymptomatic, now sleeping OB U/S ordered to assess DARYA and placenta PreE labs repeated 24hr urine still pending ETHAN CURTIS MD Aug 28, 2016 00:14
--- NOTE | 2016-08-28 00:25 | RADRPT ---
PROCEDURE: Obstetrical ultrasound, limited. CLINICAL INDICATION: Pelvic pain. TECHNIQUE: Multiple sonographic images of the pelvis were obtained using transabdominal technique . Images were obtained with erickson scale and color Doppler. The images were reviewed on a PACS works tation. COMPARISON: 08/25/2016. FINDINGS: There is a single living intrauterine gestation with the fetus in a vertex presentation. hear t tones of 161 beats per minute are identified. The placenta is posterior in location, grade 1. IMPRESSION: Single viable intrauterine gestation. Vertex presentation. .Onel Lazo MD, MD Date Time Electronically viewed and signed by .Onel Lazo MD, on 08/28/2016 00:25 .T/
[2016-08-28 01:02] LABS: BASOPHIL # 0.1 10^3/ul (0.0-0.1); BASOPHILS % 0.4 % (0.0-2.0); EOSINOPHILS % 0.1 % (0.0-7.0); HEMATOCRIT 31.8 % (37.0-47.0); HEMOGLOBIN 10.7 g/dl (12.0-16.0); LYMPHOCYTES # 2.9 10^3/ul (0.8-2.9); LYMPHOCYTES % 19.5 % (15.0-51.0); MEAN CORPUSCULAR HEMOGLOBIN 30.6 pg (29.0-33.0); MEAN CORPUSCULAR HGB CONC 33.7 g/dl (32.0-37.0); MEAN CORPUSCULAR VOLUME 90.8 fl (82.0-101.0); MONOCYTE # 0.9 10^3/ul (0.3-0.9); MONOCYTES % 6.1 % (0.0-11.0); NEUTROPHIL # 11.2 10^3/ul (1.6-7.5); NEUTROPHILS % 73.9 % (39.0-77.0); PLATELET COUNT 144 10^3/UL (140-440); RED CELL DISTRIBUTION WIDTH 14.4 % (11.5-14.5); UNCORRECTED WBC 15.1 10^3/ul (4.8-10.8); WHITE BLOOD COUNT 15.1 10^3/ul (4.8-10.8)
[2016-08-28 01:05] LABS: CONDITION 1; LH ANALYZER COMMENTS 1; SUSPECT 1
[2016-08-28 01:22] LABS: ALBUMIN 2.9 g/dl (3.3-4.9)
[2016-08-28 01:23] LABS: POTASSIUM 4.3 mmol/L (3.5-5.1)
[2016-08-28 01:25] LABS: ALBUMIN/GLOBULIN RATIO 0.9; CREATININE 0.64 mg/dl (0.44-1.00); TOTAL PROTEIN 6.1 g/dl (6.1-8.1)
[2016-08-28 01:26] LABS: CALCIUM 8.4 mg/dl (8.4-10.2); URIC ACID 5.7 mg/dl (3.1-7.9)
[2016-08-28 01:28] LABS: INR 0.96; PARTIAL THROMBOPLASTIN TIME 27.9 Sec (25.0-35.0); PROTIME 12.8 Sec (12.2-14.2)
[2016-08-28] MEDS: BETAMET NA PHOS/AC(6 MG/ML) 5ML INJ IM SCH (02:22)
[2016-08-28] MEDS ORDERED: LACTATED RINGER'S 1,000 ML IV SCH (03:11)
[2016-08-28] MEDS ORDERED: CITRIC ACID/NA CITRATE 30 ML CUP PO ONE (03:30)
[2016-08-28 04:14] LABS: ADD UMIC YES; URINE BILIRUBIN (Dip) NEGATIVE (NEGATIVE); URINE BLOOD (Dip) NEGATIVE (NEGATIVE); URINE COLOR LT. YELLOW (YELLOW); URINE GLUCOSE (Dip) NEGATIVE (NEGATIVE); URINE KETONES (Dip) NEGATIVE (NEGATIVE); URINE LEUKOCYTE ESTERASE (Dip) NEGATIVE (NEGATIVE); URINE NITRITE (Dip) NEGATIVE (NEGATIVE); URINE TOTAL PROTEIN (Dip) TRACE (NEGATIVE); URINE UROBILINOGEN (Dip) 0.2 E.U./dL (0.1-1.0)
[2016-08-28 04:24] LABS: BACTERIA,URINE RARE; SQUAMOUS EPITHELIAL CELL,UR FEW; URINE RBCS NONE SEEN /HPF (0)
--- NOTE | 2016-08-28 05:31 | QN ---
Documentation Comment Laborist PreE labs wnl. Placenta on U/S wnl 24hr urine returned at 195mg protein BPs mostly 150s/80s, pt asymptomatic Sternal pain improved with Bicitra and ice pack. Pain resolves with standing. Feels UCs, non-painful FHT reassuring, moderate variability with accels, variable decels have spaced considerably, no recent decels. [place] w/irregular UCs A/P: 1) Gestational HTN: Continue to monitor BPs. Labs nor 24hr urine suggestive of PreE. BPs reviewed across the last 24hrs and during the day shift SBP all <140s with uptrending SBPs over the course of the night. If BPs continue to trend upwards, would consider antihypertensive. Tonight pt has not had sustained severe range BPs. 2)FWB: Overall reassuring. CEFM. S/p 2nd dose of BMZ for FLM in the setting of decels 3) contractions: Pt with CL>3cm on admission, s/p Magnesium Sulfate 2/2 concern for PTL. Off tocolytics now. IVF increased from 75ml to 125ml/hr. Continue to monitor. In the event the contractions become more frequent or painful, would consider restarting Magnesium at least through the BMZ window unless there is another indication to deliver without delay. ETHAN CURTIS MD Aug 28, 2016 05:31
[2016-08-28] MEDS: LACTATED RINGER'S 1,000 ML IV SCH ×3 (06:29→22:23)
[2016-08-28] MEDS: MULTIVIT/MIN/FOLATE/IRON/PREN TAB PO SCH (09:19)
--- NOTE | 2016-08-28 16:19 | QN ---
Documentation Comment t Laborist Dr Sanchez's pt 36 y.o. A1 at 31 weeks with gestational HTN and occasional deep variable heart rate decelerations. PIH labs wnl. Placenta on U/S wnl 24hr urine returned at 195mg protein (mild elevation). BPs today 138-171/72-86, pt asymptomatic. No headache today. FHT reassuring, moderate variability with accels, deep variable decels to 60's on occasion. No UCs. A/P: 1) Gestational HTN: Continue to monitor BPs. Labs normal, 24hr urine with slight elevation of protein at 195. Systolic BP's occasionally rise but then normalize. 2) Overall reassuring tracing except for the decels. S/p 2nd dose of steroids due to the decels 3) contractions: Pt with CL>3cm on admission, s/p Magnesium Sulfate 2/2 concern for PTL. Off tocolytics now. IVF increased from 75ml to 125ml/hr. Continue to monitor. OBED SHAH MD Aug 28, 2016 16:19
[2016-08-28] MEDS ORDERED: LABETALOL HCL 20MG INJ IV ONE (20:30)
[2016-08-28] MEDS ORDERED: LABETALOL HCL 20MG INJ IV PRN (21:45)
--- NOTE | 2016-08-28 21:57 | QN ---
Documentation Comment Laborist In to see pt. Pt with sustained severe range BPs- BPs taken in semi fowlers position, pt calm. Denies DURAN, visual changes or RUQ pain. Received Labetolol 10mg IV x1 with mild range BP thereafter. FHT reviewed and reassuring. No prominent decels noted. Acontractile on toco Continue to monitor for BPs and for FWB. Pt remains asymptomatic If BPs return and persist in severe range, will consider repeating PreE labs, treat with IV antihypertensive and follow with PO meds if needed. Plan d/w pt. Questions answered to her satisfaction. ETHAN CURTIS MD Aug 28, 2016 21:57
[2016-08-29] MEDS ORDERED: LABETALOL HCL 20MG INJ IV ONE (01:30)
[2016-08-29] MEDS ORDERED: LABETALOL HCL 20MG INJ IV PRN ×3 (01:45→20:30)
[2016-08-29 02:34] LABS: ALBUMIN 2.9 g/dl (3.3-4.9)
[2016-08-29 02:35] LABS: POTASSIUM 4.4 mmol/L (3.5-5.1)
[2016-08-29 02:36] LABS: INR 0.86; PARTIAL THROMBOPLASTIN TIME 24.8 Sec (25.0-35.0); PROTIME 11.7 Sec (12.2-14.2); PT RATIO 0.9
[2016-08-29 02:37] LABS: ALBUMIN/GLOBULIN RATIO 0.93; CREATININE 0.62 mg/dl (0.44-1.00)
[2016-08-29 02:38] LABS: CALCIUM 8.6 mg/dl (8.4-10.2); URIC ACID 5.2 mg/dl (3.1-7.9)
[2016-08-29 02:45] LABS: HEMATOCRIT 31.7 % (37.0-47.0); HEMOGLOBIN 10.5 g/dl (12.0-16.0); MEAN CORPUSCULAR HEMOGLOBIN 30.5 pg (29.0-33.0); MEAN CORPUSCULAR HGB CONC 33.1 g/dl (32.0-37.0); MEAN CORPUSCULAR VOLUME 92.2 fl (82.0-101.0); RED BLOOD COUNT 3.44 10^6/ul (4.20-5.40); RED CELL DISTRIBUTION WIDTH 14.1 % (11.5-14.5); WHITE BLOOD COUNT 20.5 10^3/ul (4.8-10.8)
[2016-08-29 02:46] LABS: PLATELET COUNT 133 10^3/UL (140-440)
[2016-08-29 04:02] LABS: FIBRIN SPLIT PRODUCT <10 ug/ml (<10)
--- NOTE | 2016-08-29 05:26 | RADRPT ---
PROCEDURE: US OB biophysical profile. CLINICAL INDICATION: Decreased variability TECHNIQUE: Multiple sonographic images of the pelvis were obtained. The images were reviewed on a PACS workstation. COMPARISON: 08/28/2016 FINDINGS: There is a single live intrauterine gestation. There is a normal amount of amniotic fluid with an DARYA = 11.66 cm cm. Cardiac activity is present with 148 beats per minute. There is a vertex presentation. The placenta is posterior and grade 1 to II.. MVP = 3.6 cm Biophysical profile: movement 2/2 tone 2/2. breathing 2/2 DARYA 2/2 Total 02/15 IMPRESSION: Normal biophysical profile. . RPTAT: HLBE Physician Edward Date Time Electronically viewed and signed by Michelle Amaya Physician on 08/29/2016 05:26 LE/
[2016-08-29] MEDS ORDERED: DEXTROSE 5%-LR 1,000 ML IV PRN (05:30)
--- NOTE | 2016-08-29 05:57 | QN ---
Documentation Comment Laborist Overnight, pt had episodes of sustained severe range BPs, requiring total of 30mg IV Labetolol (10mg IV followed by 20mg IV). BPs responded after 2nd IV push of 20mg IV w/SBPs 130s-150s, DBPs remain 70s. Pt continues to be asymptomatic. PreE labs repeated overnight and wnl except for platelets which trended downwards from 140s to 130s. AST/ALT trended slightly upwards (36/28 from 20/) however still within normal ranges. FHT notable for decreasing variability with periods of increased variability with 10x10 accels. Decels have been infrequent with an occasional mild variable. Intrauterine resuscitative measures performed including supplemental 02, L lateral position and IVF bolus with minimal improvement in variability. BPP/DARYA repeated and reassuring. IVF now changed from LR to D5. Discussed with pt that should FHT remain Category 2, delivery may be necessary. ETHAN CURTIS MD Aug 29, 2016 05:57
--- NOTE | 2016-08-29 06:57 | QN ---
Documentation Comment Laborist Spoke with MFM Dr. Crabtree regarding decreased variability and in the setting of reassuring BPP at 31+1wks GA, she recommends continued conservative management. ETHAN CURTIS MD Aug 29, 2016 06:57
[2016-08-29 11:42] LABS: UNCORRECTED WBC 21.3 10^3/ul (4.8-10.8)
[2016-08-29 11:45] LABS: CONDITION 1; LH ANALYZER COMMENTS 1; SUSPECT 1
[2016-08-29 13:10] LABS: ADD UMIC YES; URINE BILIRUBIN (Dip) NEGATIVE (NEGATIVE); URINE BLOOD (Dip) NEGATIVE (NEGATIVE); URINE COLOR LT. YELLOW (YELLOW); URINE GLUCOSE (Dip) NEGATIVE (NEGATIVE); URINE KETONES (Dip) NEGATIVE (NEGATIVE); URINE LEUKOCYTE ESTERASE (Dip) NEGATIVE (NEGATIVE); URINE NITRITE (Dip) NEGATIVE (NEGATIVE); URINE TOTAL PROTEIN (Dip) 2+ (NEGATIVE); URINE UROBILINOGEN (Dip) 0.2 E.U./dL (0.1-1.0)
[2016-08-29 13:36] LABS: BACTERIA,URINE MODERATE; URINE RBCS 0-2 /HPF (0)
[2016-08-29 13:59] LABS: LYMPHOCYTES # 2.9 10^3/ul (0.8-2.9); MONOCYTE # 1.8 10^3/ul (0.3-0.9); NEUTROPHIL # 14.6 10^3/ul (1.6-7.5)
[2016-08-29] MEDS ORDERED: ONDANSETRON 4 MG INJ IV STA (17:33)
[2016-08-29] MEDS ORDERED: CITRIC ACID/NA CITRATE 30 ML CUP PO STA (17:34)
[2016-08-29] MEDS ORDERED: ONDANSETRON 4 MG INJ ONE ×2 (17:40→18:23)
[2016-08-29] MEDS ORDERED: CITRIC ACID/NA CITRATE 30 ML CUP ONE (17:40)
[2016-08-29] MEDS ORDERED: CEFAZOLIN 2 GM/50 ML (PMX) 50 ML IV SCH (18:00)
[2016-08-29] MEDS ORDERED: METHYLERGONOVINE 0.2 MG INJ IM PRN ×2 (18:00→21:00)
[2016-08-29] MEDS ORDERED: MISOPROSTOL 200 MCG TAB PR PRN ×2 (18:00→21:00)
[2016-08-29] MEDS ORDERED: OXYTOCIN 30 UNITS/LR 500 ML IV PRN ×2 (18:00→21:00)
[2016-08-29] MEDS ORDERED: CARBOPROST 250 MCG INJ IM PRN ×2 (18:00→21:00)
[2016-08-29] MEDS ORDERED: morphine SULFATE/PF (10 MG/10 ML) INJ ONE (18:07)
[2016-08-29] MEDS ORDERED: METOCLOPRAMIDE 10 MG INJ ONE (18:23)
[2016-08-29] MEDS ORDERED: OXYTOCIN 10 UNIT INJ ONE (18:23)
[2016-08-29] MEDS ORDERED: DEXAMETHASONE 4 MG/ML 1 ML INJ ONE (18:24)
[2016-08-29] MEDS ORDERED: KETOROLAC 30 MG INJ ONE (18:24)
[2016-08-29 19:00] LABS: CBV Base Excess -1.1 mmol/L; CBV COHb 0.9 %; CBV Oxygen Sat 61.3 mmHG; CBV Total Hemglobin 15.8 g/dl; Cord Blood Venous pO2 24.4 mmHG (15.0-45.0); Fraction OxyHgb Cord Venous 60.3 %; MODE ROOM AIR; MetHgb Cord Venous 0.7 %; Sample Type Blood venous
[2016-08-29] MEDS ORDERED: morphine (1 MG/ML) 10ML SYRINGE IV PRN ×3 (19:00)
[2016-08-29] MEDS ORDERED: MEPERIDINE 25 MG INJ IV PRN (19:00)
[2016-08-29] MEDS ORDERED: HYDROmorphONE (0.2 MG/ML) 10ML SYG IV PRN ×3 (19:00)
[2016-08-29] MEDS ORDERED: ONDANSETRON 4 MG INJ IV PRN ×2 (19:00)
[2016-08-29] MEDS ORDERED: DIPHENHYDRAMINE 50 MG INJ IV PRN ×2 (19:00)
[2016-08-29] MEDS ORDERED: HYDROmorphONE 1 MG/ML SYG IV PRN ×2 (19:00)
[2016-08-29] MEDS ORDERED: KETOROLAC 30 MG INJ IV PRN (19:00)
[2016-08-29] MEDS ORDERED: morphine 2 MG INJ IV PRN ×2 (19:00)
[2016-08-29] MEDS ORDERED: ZOLPIDEM 5 MG TAB PO PRN (19:00)
[2016-08-29] MEDS ORDERED: NALOXONE (0.4 MG/ML) INJ IV PRN (19:00)
[2016-08-29] MEDS ORDERED: OXYTOCIN 30 UNITS/LR 500 ML IV SCH (20:00)
[2016-08-29] MEDS ORDERED: MAGNESIUM SULFATE 4 GM/100 ML 100 ML ONE (20:17)
[2016-08-29] MEDS ORDERED: MAGNESIUM SULFATE 4 GM/100 ML 100 ML IVPB ONE (20:20)
[2016-08-29] MEDS: MAGNESIUM SULFATE 20 GM/500 ML 500 ML IV SCH (20:55)
[2016-08-29] MEDS ORDERED: LANOLIN 7 GM TUBE TOP PRN (21:00)
[2016-08-29] MEDS ORDERED: OXYCODONE/ACETAMINOPHEN (5/325) TAB PO PRN (21:00)
[2016-08-29] MEDS ORDERED: CA GLUCONATE (GM) 10% 10ML INJ IV PRN (21:00)
[2016-08-29] MEDS: IBUPROFEN 800 MG TAB PO SCH (22:00)
--- NOTE | 2016-08-29 22:23 | OPR ---
DATE OF OPERATION: 08/29/2016 PREOPERATIVE DIAGNOSES: 1. Intrauterine at 31 weeks 1 day. 2. Gestational hypertension with severe-range blood pressures. 3. Sustained category II heart tracing with heart rate decelerations to the 60s. POSTOPERATIVE DIAGNOSES: 1. Intrauterine at 31 weeks 1 day. 2. Gestational hypertension with severe-range blood pressures. 3. Sustained category II heart tracing with heart rate decelerations to the 60s. 4. Status post delivery of a viable baby boy weighing 1485 grams or 3 pounds 4 ounces with scores of 8 and 8. OPERATION PERFORMED: Primary low transverse section. SURGEON: Norm Georges MD SUBMARINE OPERATOR: Karan Montes De Oca MD ANESTHESIOLOGIST: ____ ANESTHESIA: Spinal block. ESTIMATED BLOOD LOSS: 600 mL COMPLICATIONS: None. PROCEDURE: The patient was brought to the operating room, placed on the operating room table and was set up for a spinal block. She was then laid in the supine position with a wedge and was prepped and draped in the usual sterile fashion after placement of a Ugalde catheter. Pfannenstiel incision was made using a knife through skin and subcutaneous tissue down to the level of fascia. Fascia was incised and extended bilaterally using Bovie cautery and scissors. Superior edge of the fascia was grasped with Eileen clamps, and the rectus muscles were from the overlying fascia using blunt dissection, Bovie cautery. This was repeated at the lower edge of the incision as well. Rectus muscles were at midline with a Anayeli clamp, and the anterior peritoneum was bluntly entered using the surgeon's fingers. The incision was then stretched open with hands. Bladder blade and Mcduffie retractor were placed in the incision. The lower uterine segment was incised with a knife and entered with a Anayeli clamp. The fluid was clear inside. head was easily delivered with gentle fundal pressure, and the rest of the body followed. Mouth and nares were bulb suctioned. Cord was allowed to pulse for a minute, then doubly clamped and cut, and the baby was handed off the field to the NICU respiratory team present at delivery. Cord gases were obtained and then a sample of cord blood. Placenta was then manually extracted. Uterus was externalized, wrapped in a moist lap, and a dry lap was used to clean the interior of the uterus. The incision was closed in 2 layers using #1 chromic in a running locking stitch. Pelvis was irrigated. Uterus was replaced back into the abdomen. Tubes and ovaries had been noted to be normal. Incision was examined again and noted to be dry. Anterior peritoneum was closed using 2-0 chromic in running stitch. The rectus muscles were brought back together at midline with 2 interrupted [id number] sutures of the same material. The underbelly of the fascia was examined and noted to be dry. Fascia was then closed from each lateral edge to midline with overlap at the midline. Subcutaneous tissue was irrigated well and cautery used for excellent hemostasis. Subcutaneous layer was closed using 2-0 chromic in running stitch in 2 layers, and the skin was closed with 3-0 Monocryl in a subcuticular stitch with excellent tissue approximation and hemostasis. Steri-Strips with Mastisol were placed, and a pressure dressing was then applied overall. The patient tolerated the procedure very well and was brought to the recovery room in excellent condition. Dictated By: NORM OWEN/GT Conf#: [id number] DID#: [id number] MTDD
--- NOTE | 2016-08-29 22:52 | PREOPHP ---
DATE OF ADMISSION: 08/25/2016 HISTORY OF PRESENT ILLNESS: The patient is a 36-year-old 5, para 3, AB 1 with IUP of 31 weeks 1 day. The patient was admitted on 08/25, initially sent in for complaint of headaches and elevated blood pressures and had come in to have 24-hour urine collection, and she also had contractions when she came in. Cervical length was done which was 3.5. However, she was placed on magnesium as they did not easily stop. All her PIH labs done were normal. The 24-hour urine done then has still not come back with any results. Over the course of this admission, patient has had variable blood pressures, sometimes increasing at night into severe-range blood pressures with 160s, 170s, 180s over 90s with attendant headaches and pressure behind her eyes. On occasion, they have needed blood pressure medications to bring them down, usually labetalol. The headache did improve when her blood pressures improved. Contractions did stop on the magnesium, and the contractions did not return. However, patient started having heart rate decelerations down into the 60s. At that point, they were quite brief and random. The rest of the time, the tracing was looking reactive and with good accelerations. Over the course of the night of the , there were no more heart rate decelerations, but the blood pressures were rising, needing several doses of labetalol to bring them down, and then over the course of today, tracing became increasingly flat with variability of maximum of 5 beats per minute. Initially the heart rate decelerations were very random, then they seemed to be getting closer together, then they were every hour, then closer. She had 1 very large one down to 60 beats per minute lasting a minute and a half to 2 minutes with a return to baseline, and then her blood pressure started to go up again in the 160s over 90s. The patient was feeling the pressure behind her eyes and was feeling very uncomfortable. Both myself and the mother and father of baby were getting increasingly nervous with the heart rate decelerations and that the mother was feeling increasingly worse. Decided over the course of the day was that the bottom line was we would not be getting another week or two out of this patient, maybe maximum another day or so. The mother already received steroids. She received the first dose of betamethasone on the at 2:00 in the morning and the second one on the 18 at 2:00 in the morning, so it's been well over 48 hours. She initially was on magnesium sulfate for the contractions. That was from the th to the 16th. All labs have continued to be normal except the platelets were slightly below normal and have slowly decreased over time but still not alarmingly low. As stated before, her 24-hour urine collection has not returned as it is a send-out test at this point in time. Biophysical profile this morning was 8/8 with a normal DARYA, but due to the worsening picture in conjunction with discussion with the patient and her , we have decided to proceed to a section. She had eaten breakfast in the morning and waited a full 8 hours. Please note her blood pressures during her in the first trimester where 103 to 127 over 65 to 76, second trimester 97 to 115 over 62 to 77. PAST MEDICAL HISTORY: Significant only for migraines. PAST SURGICAL HISTORY: None. ALLERGIES: NO KNOWN DRUG ALLERGIES. PHYSICAL EXAMINATION: VITAL SIGNS: Blood pressure just prior to surgery 160s over 90s. LABORATORY: Recent lab work was done. In the morning, white blood count was 20.5, platelets 133,000. ALT and AST were 28 and 36. BUN and creatinine were 13 and 0.62. Uric acid was 5.2. HEART: Regular rate and rhythm. LUNGS: Clear to auscultation. ABDOMEN: Soft, nontender, gravid. PELVIC: Cervical exam: Thick, fingertip, ballottable. EXTREMITIES: 1+ edema. ASSESSMENT: 1. Intrauterine at 31 weeks 1 day. 2. Gestational hypertension with severe-range blood pressures, worsening with time. 3. Category II heart tracing, sustained, worsening with time. PLAN: Primary low transverse section. Dictated By: OBED OWEN/GT Conf#: [id number] DID#: [id number] MTDD
[2016-08-29 23:30] VITALS: BP 147/87; PULSE 72; RESP 19
[2016-08-30] VITALS (14 sets, daily range): BP systolic 113–140; BP diastolic 65–85; PULSE 67–82; RESP 18–21
[2016-08-30] MEDS: LACTATED RINGER'S 1,000 ML IV SCH ×3 (01:15→12:53)
--- NOTE | 2016-08-30 03:10 | CONS ---
Date/Time of Note Date/Time of Note DATE: 08/30/16 TIME: 03:08 Consultation Date/Type/Reason Admit Date/Time Aug 25, 2016 at 21:00 Initial Consult Date 08/29/16 Type of Consultation: Anesthesia Reason for Consultation 24 HR Interval Summary Free Text/Dictation 36 yr old female went under due to non-reassuring heart rate. Spinal anesthesia was give, and intrathecal Duramorph was given for post-op pain control. Patient is doing well post op, pain is well controlled. No nausea or vomiting noted. No apnea reported. No itching and no sensory or motor loss noted. Patient will be followed up by her primary team. Exam/Review of Systems Vital Signs Vitals Vital Signs Date Time Temp Pulse Resp B/P Pulse Ox O2 Delivery O2 Flow Rate FiO2 08/30/16 00:00 68 18 127/74 Room Air 08/29/16 23:30 97.9 08/29/16 23:25 97 21 Intake and Output 08/29/16 08/29/16 08/30/16 15:00 23:00 07:00 Intake Total 500 ml 267 ml Output Total 600 ml 1255 ml Balance -600 ml -755 ml 267 ml Results Result Diagram: 08/29/16 0215 08/29/16 0215 Results 24 hrs Laboratory Tests Test 08/29/16 18:50 Asa Test N/A Arterial Blood Date Drawn 08/29/2016 6:50:32 PM Arterial Blood Gas Puncture Site CORD Blood Gas Modality ROOM AIR Blood Gas Notified Time 08/29/2016 7:00:14 PM Blood Gas Notified Whom C.V. Blood Gas Specimen Source Blood venous Blood Gas Temperature 37.0 Cord Blood Carboxyhemoglobin 0.9 Cord Venous Blood Base Excess -1.1 Cord Venous Blood HCO3 25.3 Cord Venous Blood Hemoglobin 15.8 Cord Venous Blood Methemoglobin 0.7 Cord Venous Blood Oxyhemoglobin 60.3 Cord Venous Blood PCO2 48.3 Cord Venous Blood PO2 24.4 Cord Venous Blood pH 7.337 FiO2 21.0 POC Cord Venous Blood Oxygen Sat 61.3 Medications Medications Current Medications Naloxone HCl (Narcan) 0.1 mg Q2M PRN IV FOR RESP RATE 8 OR LESS; Start at 19:00; Stop 08/30/16 at 18:59 Ketorolac Tromethamine (Toradol) 30 mg Q6H PRN IV PAIN; Start 08/29/16 at 19:00 ; Stop 08/30/16 at 18:59 Morphine Sulfate (morphine) 2 mg Q3H PRN IV PAIN LEVEL 1-5; Start 08/29/16 at 19:00; Stop 08/30/16 at 18:59 Morphine Sulfate (morphine) 4 mg Q3H PRN IV PAIN LEVEL 6-10; Start 08/29/16 at 19:00; Stop 08/30/16 at 18:59 Hydromorphone HCl (Dilaudid) 0.2 mg Q3H PRN IV PAIN LEVEL 1-5; Start 08/29/16 at 19:00; Stop 08/30/16 at 18:59 Hydromorphone HCl (Dilaudid) 0.4 mg Q3H PRN IV PAIN LEVEL 6-10; Start 08/29/16 at 19:00; Stop 08/30/16 at 18:59 Diphenhydramine HCl (Benadryl) 25 mg Q6H PRN IV ITCHING; Start 08/29/16 at 19: 00; Stop 08/30/16 at 18:59 Miscellaneous Information Duramorph: 0.2 mg Spi... GIVEN XX ; Start 08/29/16 at 19:00 Magnesium Sulfate 500 ml @ 50 mls/hr Q10H IV Last administered on 08/29/16t 20 :55; Admin Dose 50 MLS/HR; Start 08/29/16 at 20:50 Lactated Ringer's (Lr) 1,000 ml @ 125 mls/hr Q8H IV Last administered on t 01:15; Admin Dose 125 MLS/HR; Start 08/29/16 at 20:53 Oxycodone/ Acetaminophen (Percocet (5/ 325)) 1 tab Q4H PRN PO PAIN LEVEL 4-6; Start 08/29/16 at 21:00 Oxycodone/ Acetaminophen (Percocet (5/ 325)) 2 tab Q4H PRN PO PAIN LEVEL 7-10; Start 08/29/16 at 21:00 Ibuprofen (Motrin) 800 mg Q8 PO ; Start 08/29/16 at 22:00 Simethicone (Mylicon) 160 mg Q8H PRN PO DISTENSION/GAS/BLOATING; Start at 21:00 Diphtheria/ Tetanus/Acell Pertussis 0.5 ml 0.5 ml ONCE ONCE IM* ; Start at 09:00; Stop 09/01/16 at 09:01 Oxytocin/Lactated Ringer's 500 ml @ 0 mls/hr ONCE PRN IV For Hemorrhage Management; Start 08/29/16 at 21:00 Methylergonovine Maleate (Methergine) 0.2 mg ONCE PRN IM VAGINAL BLEEDING; Start 08/29/16 at 21:00 Carboprost Tromethamine (Hemabate) 250 mcg ONCE PRN IM VAGINAL BLEEDING; Start 08/29/16 at 21:00 Misoprostol (Cytotec) 1,000 mcg ONCE PRN AR VAGINAL BLEEDING; Start 08/29/16 at 21:00 Calcium Gluconate (Ca Gluc) 1 gm ONCE PRN IV FOR MAGNESIUM TOXICITY; Start 08/29 at 21:00 ERIKA ELIZABETH MD Aug 30, 2016 03:10
[2016-08-30] MEDS: IBUPROFEN 800 MG TAB PO SCH ×3 (06:00→22:00)
[2016-08-30] MEDS: MAGNESIUM SULFATE 20 GM/500 ML 500 ML IV SCH ×2 (06:14→16:50)
--- NOTE | 2016-08-30 08:08 | QN ---
Documentation Comment doing well vss abd soft incision c&d cpm JADYN GONZALEZ MD Aug 30, 2016 08:08
[2016-08-30 08:12] LABS: HEMATOCRIT 27.4 % (37.0-47.0); HEMOGLOBIN 9.3 g/dl (12.0-16.0); MEAN CORPUSCULAR HEMOGLOBIN 30.9 pg (29.0-33.0); MEAN CORPUSCULAR HGB CONC 33.9 g/dl (32.0-37.0); MEAN CORPUSCULAR VOLUME 91.2 fl (82.0-101.0); MEAN PLATELET VOLUME 12.4 fl (7.4-10.4); PLATELET COUNT 116 10^3/UL (140-440); RED CELL DISTRIBUTION WIDTH 14.8 % (11.5-14.5); UNCORRECTED WBC 28.6 10^3/ul (4.8-10.8)
[2016-08-30 08:14] LABS: ALBUMIN 2.6 g/dl (3.3-4.9)
[2016-08-30 08:15] LABS: POTASSIUM 4.9 mmol/L (3.5-5.1)
[2016-08-30 08:17] LABS: CREATININE 0.64 mg/dl (0.44-1.00); TOTAL PROTEIN 5.3 g/dl (6.1-8.1)
[2016-08-30 08:18] LABS: CALCIUM 6.9 mg/dl (8.4-10.2); PHOSPHORUS 4.7 mg/dl (2.5-4.9)
[2016-08-30 08:21] LABS: CONDITION 1; LH ANALYZER COMMENTS 1; SUSPECT 1
[2016-08-30 13:07] LABS: LYMPHOCYTES # 2.6 10^3/ul (0.8-2.9); MONOCYTE # 1.7 10^3/ul (0.3-0.9)
[2016-08-30 17:03] LABS: WHITE BLOOD COUNT 28.6 10^3/ul (4.8-10.8)
[2016-08-31 04:30] VITALS: BP_SYST 126; BP_SYST 96; BP_DIAS 56; BP_DIAS 78; PULSE 67; PULSE 92; RESP 19
[2016-08-31] MEDS: IBUPROFEN 800 MG TAB PO SCH ×3 (05:34→21:44)
[2016-08-31 08:00] VITALS: BP 121/81; PULSE 66; RESP 18
--- NOTE | 2016-08-31 08:29 | QN ---
Documentation Comment doing well vss abd soft magnesium d/c d/c home tomorrow JADYN GONZALEZ MD Aug 31, 2016 08:29
--- NOTE | 2016-08-31 08:31 | DS ---
Date/Time of Note Date/Time of Note DATE: 08/31/16 TIME: 08:29 Discharge Summary Admission/Discharge Info Admit Date/Time Aug 25, 2016 at 21:00 Discharge Date/Time Final Diagnosis 31 weeks with PIH and primary c/s Patient Condition: Stable Hospital Course elevated BP , on magensium for 24 hours Home Meds Reported Medications Multivit/Min/Fol Ac/Iron/Pren* ( S*) 1 Tab Tab, 1 TAB PO DAILY, TAB 08/25/16 Pending Labs Laboratory Tests Test 08/30/16 12:45 Magnesium Level 7.2mg/dl (1.7-2.5) JADYN GONZALEZ MD Aug 31, 2016 08:31
[2016-08-31 16:19] VITALS: BP 137/81; PULSE 77; RESP 18
[2016-08-31 19:57] VITALS: BP 114/59; PULSE 74; RESP 18
[2016-08-31] MEDS: OXYCODONE/ACETAMINOPHEN (5/325) TAB PO PRN (22:47)
[2016-09-01 04:00] VITALS: BP 109/53; PULSE 78; RESP 18
[2016-09-01] MEDS: IBUPROFEN 800 MG TAB PO SCH ×2 (05:53→14:00)
[2016-09-01 08:00] VITALS: BP 140/79; PULSE 80; RESP 18
--- NOTE | 2016-09-01 08:46 | QN ---
Documentation Comment POD#3 s/p 1LTCS in the setting of gHTN w/severe range BPs and persistent Category II FHT at 31+1wks GA S: Pt doing well. Had some abdominal pain overnight which improved with PO meds. Pt is ambulating, voiding, passing flatus and tolerating POs w/o difficulty. Pt is unsure if she would like to go home today versus stay the maximum time possible given baby is in the NICU, she lives far away and she is pumping. O: VS 98.1 140/79 (24hr range 109-140/53-81) 80 18 Gen: sitting up, NAD CV: RRR, nl s1s2 Resp: CTAB Abd: soft, mildly distended, appropriately TTP, FF 1FB below the umbilicus Inc: c/d/i with steris Ext: BLE symmetric, nontender, 1+ pitting edema Labs: Postop Hgb 9.3, Plts 116 A/P: Pt progressing towards postop milestones Encourage continued ambulation Encourage /pumping support Repeat CBC given downtrending platelets at last CBC Pain meds prn Dispo either today or tomorrow. Pt and her will discuss options and alert provider as to preference ETHAN CURTIS MD Sep 01, 2016 08:46
[2016-09-01] MEDS ORDERED: DIPHTH/TET/ACEL PERTUSS (ADULT) 0.5 ML VIAL IM* ONE (09:00)
[2016-09-01 11:41] LABS: BASOPHIL # 0.1 10^3/ul (0.0-0.1); BASOPHILS % 0.3 % (0.0-2.0); EOSINOPHILS # 0.2 10^3/ul (0.0-0.5); HEMOGLOBIN 8.6 g/dl (12.0-16.0); LYMPHOCYTES # 3.4 10^3/ul (0.8-2.9); LYMPHOCYTES % 15.2 % (15.0-51.0); MEAN CORPUSCULAR HEMOGLOBIN 30.8 pg (29.0-33.0); MEAN CORPUSCULAR HGB CONC 33.2 g/dl (32.0-37.0); MEAN CORPUSCULAR VOLUME 92.8 fl (82.0-101.0); MEAN PLATELET VOLUME 10.8 fl (7.4-10.4); MONOCYTE # 1.1 10^3/ul (0.3-0.9); MONOCYTES % 5.1 % (0.0-11.0); NEUTROPHIL # 17.5 10^3/ul (1.6-7.5); NEUTROPHILS % 78.4 % (39.0-77.0); PLATELET COUNT 151 10^3/UL (140-440); RED CELL DISTRIBUTION WIDTH 15.6 % (11.5-14.5); UNCORRECTED WBC 22.3 10^3/ul (4.8-10.8); WHITE BLOOD COUNT 22.3 10^3/ul (4.8-10.8)
[2016-09-01 11:47] LABS: CONDITION 1; LH ANALYZER COMMENTS 1
[2016-09-01] MEDS: OXYCODONE/ACETAMINOPHEN (5/325) TAB PO PRN (12:30)
== END 2016-09-01 14:08 | disposition home or self-care (01) | DRG 766 ==
LOC: OBT 18:28 → L-D 18:28 → OBG 21:00 → OBT 21:00 → L-D 08-27 23:03 → PP1 08-29 23:22
PROVIDERS: ADMIT Obstetrics & Gynecology; ATTEND Obstetrics & Gynecology
PROC: 4A033R1 Measurement of Arterial Saturation, Peripheral, Percutaneous Approach (ICD-10-PCS; 2016-08-29)
PROC: 10D00Z1 Extraction of Products of Conception, Low, Open Approach (ICD-10-PCS; principal; 2016-08-29 18:30)
DX: O13.4 Gestational [pregnancy-induced] hypertension without significant proteinuria, complicating childbirth (principal); O60.14X0 Preterm labor third trimester with preterm delivery third trimester, not applicable or unspecified; O76 Abnormality in fetal heart rate and rhythm complicating labor and delivery; Z3A.30 30 weeks gestation of pregnancy; Z37.0 Single live birth
CPT/HCPCS: 36415; 76815; 76817; 76818; 80053; 80069; 80076; 81001; 81003; 82575; 82731; 82803; 83735; 84560; 85025; 85362; 85384; 85610; 85730; 86592; 86850; 86900; 86901; 87086; 88307; 90715; 94760; 96360; 96361; 96365; 99464; G0463; J0690; J0702; J1100; J1885; J2175; J2274; J2405; J2590; J2765; J3475; J7120